=== PATIENT | female | born 1955 | race Caucasian/White ===

== ENCOUNTER 2016-03-12 19:37 | Emergency (ER) | payer OTHER ==
[~2016-03-12] VITALS: Ht 154.9 cm; Wt 79.5 kg
[~2016-03-12 19:37] MED LIST: BUPR300T51 PO; CELE200 PO; ESTR0.5T4 PO; HYDR25TA4 PO; OMEP20TA86 PO; QVAR80 INH; SIN10 PO; SYN175 PO; TELM80TA PO
[2016-03-12 19:52] VITALS: BP 180/100; PULSE 68; RESP 16; O2SAT 99
--- NOTE | 2016-03-12 21:22 | ED.REPORT ---
HPI-Extremity Problem Lower Date of Service Mar 12, 2016 ED Provider: Ernesto Smith MD Patient is a 60 year old female who presents to the ED following a ski accident with bilateral knee pain, which is worse in the left knee. The patient was skiing and describes that she caught air after a small hill and, "hyperflexed both knees in the air." She was able to ski down the rest of the mountain successfully following the incident but experienced moderate pain at the bottom of the mountain. She needed assistance walking later in the day. Her pain has been increasing in severity since the accident and currently describes it as, "throbbing and painful." Pt yells loudly upon the slightest touch of the leg. Patient says she feels like she, "pulled something," in both legs. She can currently walk only three steps and every time she stops walking she needs help sitting down and standing up. She feels extreme pain when she extends both legs. Nursing Notes Stated Complaint: BILATERAL KNEE PAIN Chief Complaint: Extremity Trauma Nursing Notes Reviewed: Yes Allergies: Coded Allergies: Sulfa (Sulfonamide Antibiotics) (Verified Allergy, Intermediate, RASH, MIGRAINES, 03/14/13) Scheduled Beclomethasone-Expunged Drug, Do Not Renew! (Jtrw-11-Sgdjwsdz Drug, Do Not Renew !) 80 Mcg Puff 2 PUFFS INH BID Bupropion-Expunged Drug, Do Not Renew! (Bupropion XL-Expunged Drug, Do Not Renew !) 300 Mg Tab.sr.24h 300 MG PO DAILY Estradiol-Expunged Drug, Do Not Renew! (Estrace-Expunged Drug, Do Not Renew!) 0.5 Mg Tablet 0.5-1 MG PO DAILY Hydrochlorothiazide-Expunged, Do Not Renew! (Hydrochlorothiazide-Expunged, Do Not Renew!) 25 Mg Tablet 25 MG PO DAILY Levothyroxine-Expunged Drug, Do Not Renew! (Synthroid-Expunged Drug, Do Not Renew!) 175 Mcg Tablet 175 MCG PO DAILY Montelukast-Expunged Drug, Do Not Renew! (Singulair-Expunged Drug, Do Not Renew! ) 10 Mg Tablet 10 MG PO HS Omeprazole-Expunged Drug, Do Not Renew! (Omeprazole-Expunged Drug, Do Not Renew! ) 20 Mg Tablet.dr 20 MG PO BIDAC Telmisartan-Expunged Drug, Do Not Renew! (Micardis-Expunged Drug, Do Not Renew! ) 80 Mg Tablet 80 MG PO DAILY Scheduled PRN Celecoxib-Expunged Drug, Do Not Renew! (Celecoxib-Expunged Drug, Do Not Renew!) 200 Mg Capsule 200 MG PO BID PRN PRN General Time Seen by MD: 21:18 Chief Complaint Knee injury right, Knee injury left Hx Obtained From: Patient Arrived By: Walk-in Onset Occurred: 5 - 8 hours ago Symptom Duration: Since onset Caused by: Sports injury Location: : Knee left: Knee right Severity: Current: Moderate Exacerbated by: Flexion Recent Healthcare: No recent doctor visit, No recent hospitalization Similar Sx Previous: No Past Medical History Past Medical History right wrist fracture hypothyroid Past Surgical History bariatric surgery Smoking History Unknown if Ever Smoker Social History Other Social History: Good social support, Local resident Ambulatory Status Independent Review of Systems Musculoskeletal: Reports: Joint pain (right and left knee) Complete sys rev & neg: except as marked. Physical Exam Initial Vital Signs Vital Signs (First) Date Time Temp Pulse Resp B/P Pulse Ox O2 Delivery O2 Flow Rate FiO2 03/12/16 19:52 37.2 68 16 180/100 99 Initial VS: Reviewed, Vital signs abnormal General/Constitutional: Well-developed, Well-nourished Head / Eyes: Atraumatic, Normocephalic, PERRL ENT: Mucous membranes moist, Conjunctiva normal, No scleral icterus Neck: Supple, Non-tender, Full range of motion Respiratory: Breath sounds normal, Clear to auscultation, No respiratory distress Cardiovascular: Regular rate & rhythm, Heart sounds normal, Intact distal pulses Abdomen / GI: Soft, Non-tender, No guarding, No rebound, No distention Skin: Warm, Dry, No cyanosis Neurologic: Alert, Oriented, Nonfocal Psychiatric: Mood/affect normal, Behavior normal, Normal thought content Left Knee: Positive: Swelling present..., Tenderness present... left knee exquisitely tender with any movement 2+ effusion on left knee no evident effusion on right knee prefers to hold the left leg flexed at 10 degrees distal neurovascularly Ankle / Foot: Atraumatic, Inspection NL, Full range of motion, No swelling Distress / Hydration: Positive: Distress moderate (with any movement) Interpretation & Diagnostics X-Ray Interpretation Xray Interpretation: LEFT KNEE IMPRESSION: medial joint space narrowing multiple arthritis X-Ray Ordered: Knee left Interpretation / Wet Read by: Wet read ED physician Interpretation: No fracture/dislocation Xray Interpretation: RIGHT KNEE X-RAY IMPRESSION: slight medial joint space narrowing some arthritis X-Ray Ordered: Knee right Interpretation / Wet Read by: Wet read ED physician Interpretation: No fracture/dislocation Procedures Splint Application - Fx Mgt Splint Application- Fx Mgt: Left knee immobilizer applied for internal derangement of the left knee with effusion Procedure Performed by: ED physician, 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 She has pre-existing arthritis of her knees and a strong family history of degenerative arthritis. She has an effusion of the left knee and painful range of motion of both knees. There is no instability. X-ray examination reveals multiple areas of degenerative arthritis with medial compartment narrowing of both knees. No fracture is seen. Re-Evaluation/Progress : Time of Eval: 22:50 Patient Status: Condition unchanged, Mild relief Re-Evaluation/Progress Note: Pt rechecked. Informed of results of x-rays. There are no acute fractures. She has medial joint space narrowing that is more severe in the left knee then the right knee and multiple arthritis in both knees. Informed of plan of treatment. All questions addressed. She understands and agrees with the treatment plan. Counseled Regarding: Diagnosis, Lab results, Need for follow-up, When/why to return to ED Discharge & Departure Impression: Primary Impression: Left knee sprain Encounter type: initial encounter Involved ligament of knee: unspecified ligament Qualified Code: S83.92XA - Sprain of unspecified site of left knee, initial encounter Additional Impressions: Right knee sprain Encounter type: initial encounter Involved ligament of knee: unspecified ligament Qualified Code: S83.91XA - Sprain of unspecified site of right knee, initial encounter Effusion, left knee Disposition: Home Discharge Condition All VS Reviewed: Yes Condition: Stable Patient Instructions: Knee Sprain (ED) Additional Instructions: Thank you for coming to the Emergency Department today. You have left knee effusion and your x-rays show medial joint space narrowing that is more severe in the left knee then the right. There is multiple arthritis in both knees. There is no evidence of acute injury, fracture or dislocation. I suspect that you have a injury to the internal structures of the knee, either cruciate ligament or meniscus. You will eventually need an MRI if the pain does not diminished dramatically. Use your knee immobilizer and crutches as long as needed. Take ibuprofen and Tylenol as directed for pain. Follow-up with your orthopedist in the next few days. Return to the Emergency Department for any new or worsening symptoms. We hope you feel better soon! Referrals: OTHER,PHYSICIAN (PCP) Scribe Attestation Portions of this note were transcribed by Ginger Graham. I, Dr. Smith personally performed the history, physical exam and medical decision-making; I reviewed and confirmed the accuracy of the information in the transcribed note. Signed by: Ashley Bishop, 03/12/16 4400 Ernesto Smith MD Mar 12, 2016 21:22 GINGER GRAHAM Mar 12, 2016 21:31
[2016-03-12] MEDS ORDERED: Ketorolac 30 mg/mL 2 mL Inj IM ONE (21:45)
[2016-03-13 00:09] VITALS: BP 146/72; PULSE 68; RESP 16; O2SAT 99
--- NOTE | 2016-03-13 08:17 | DRSVH ---
PROCEDURE: X-RAY LEFT KNEE, THREE VIEWS ([id number]) INDICATIONS: 60 year-old female with left knee pain after skiing injury. TECHNIQUE: 3 views of the knee were acquired. COMPARISON: [facility], , KNEE 3VW (LT), 03/04/2011, 16:39. FINDINGS: Bones: No fractures or dislocations. Significant tricompartmental knee joint degeneration is again noted, with medial knee joint narrowing. There is new lateral patellar subluxation on the sunrise vie w. No suspicious bony lesions. Soft tissues: There is large joint effusion. No suspicious soft tissue calcifications. IMPRESSION: 1. No acute bony injuries of the left knee. Large knee joint effusion would be consistent with soft t issue injury in the appropriate clinical setting. 2. Significant tricompartmental knee joint degeneration again noted, with newly apparent lateral ibarra llar subluxation. Dictated by: Jameel Kaur M.D. on 03/13/2016 at 8:14 Approved by: Jameel Kaur M.D. on 03/13/2016 at 8:16
--- NOTE | 2016-03-13 08:19 | DRSVH ---
PROCEDURE: X-RAY RIGHT KNEE, THREE VIEWS ([id number]) INDICATIONS: 60 year-old female with right knee skiing injury. TECHNIQUE: 3 views of the knee were acquired. COMPARISON: [facility], , KNEE MIN 4VW (RT), 04/15/2011, 10:55. FINDINGS: Bones: No fractures or dislocations. Tricompartmental knee joint degeneration is again noted. Lemon lar alignment appears normal. No suspicious bony lesions. Soft tissues: No joint effusion. No suspicious soft tissue calcifications. IMPRESSION: No acute bony injuries of the right knee. Moderate tricompartmental knee joint degenerati on as before. Dictated by: Jameel Kaur M.D. on 03/13/2016 at 8:16 Approved by: Jameel Kaur M.D. on 03/13/2016 at 8:17
== END 2016-03-13 00:09 | disposition home or self-care (01) ==
LOC: SED 19:37
DX: S83.91XA Sprain of unspecified site of right knee, initial encounter (principal); S83.92XA Sprain of unspecified site of left knee, initial encounter; W18.30XA Fall on same level, unspecified, initial encounter; Y93.23 Activity, snow (alpine) (downhill) skiing, snowboarding, sledding, tobogganing and snow tubing; Y92.89 Other specified places as the place of occurrence of the external cause; Y99.8 Other external cause status; M25.462 Effusion, left knee; E03.9 Hypothyroidism, unspecified; Z87.81 Personal history of (healed) traumatic fracture; Z88.2 Allergy status to sulfonamides
CPT/HCPCS: 73562; 96372; 99284; J1885